=== PATIENT | female | born 1990 | race Caucasian/White ===

== ENCOUNTER → 2016-08-19 | Emergency (ER) | payer MEDICAID ==
[~2016-08-19] VITALS: Ht 154.9 cm; Wt 95.5 kg
[~2016-08-19] MED LIST: ADDERALL XR20 MG PO; ADDERALL10 MG PO; ADDERALL20 MG PO; AMOXICILLIN 50500 MG; ANTIDEPRESANT; BACTRIM DS 8001 TAB PO; CEPHALEXIN500 M1 PO; DEPO PROVER150 MG/ML IM; DOXYCYCLINE100 M2 PO; LEVAQUIN 5500 MG/TA1 PO; LEXAPRO 10MG10 MG PO; LORTAB 5/500 501 TAB PO; MACROBID100 M1 PO; MOTRIN 800800 MG/TAB PO; NO HOME MEDICATIONS; NORCO 325 MG-7.1 TAB PO; PRENATAL1 TA1 PO; PRENATAL1 TA3 PO; PROMETHAZINE12.5 M5 PO; SPRINTEC 35 MCG1 TAB PO; ZITHROMAX 250M250 MG PO; ZOFRAN 4MG T4 MG/TAB PO; ZOFRAN ODT4 MG PO
[2016-08-19 16:55] VITALS: TEMP 98.4
[2016-08-19 18:12] LABS: BASO # 0.1 (0.0-0.2); BASO % 0.6 % (0.0-2.0); EOS # 0.2 (0.0-0.7); EOS % 2.5 % (0-4.0); GRAN % 47.9 % (42.2-75.2); HEMATOCRIT 37.9 % (37.0-47.0); HEMOGLOBIN 12.6 g/dl (12.5-16.0); LYMPH # 3.2 (1.2-3.4); LYMPH % 37.9 % (20.0-51.0); MEAN CELL VOLUME 92 fl (80.0-100.0); MEAN CORPUSCULAR HEMOGLOBIN 30 pg (27.0-31.0); MEAN CORPUSCULAR HGB CONC 33 g/dl (33.0-37.0); MEAN PLATELET VOLUME 9.8 fl (7.4-10.4); MONO # 0.9 (0.1-0.6); MONO % 10.9 % (1.7-9.3); PLATELET COUNT 250 K/mm3 (130-400); RED BLOOD COUNT 4.14 M/mm3 (4.10-5.30); REDCELL DISTRIBUTION WIDTH-CV 13.6 % (11.5-14.5); WHITE BLOOD COUNT 8.3 K/mm3 (4.8-10.8)
[2016-08-19 18:31] LABS: AMPHETAMINE URINE NEGATIVE; BARBITURATES URINE NEGATIVE; BENZODIAZEPINES URINE NEGATIVE; BUPRENORPHINE URINE NEGATIVE; METHADONE URINE NEGATIVE; OPIATES URINE NEGATIVE; OXYCODONE URINE NEGATIVE; PHENCYCLIDINE URINE NEGATIVE; PROPOXYPHENE URINE NEGATIVE; THC CANNABINOIDS URINE NEGATIVE
[2016-08-19 18:32] LABS: ADJUSTED CALCIUM 9.3 mg/dL (8.4-10.2); ALANINE AMINOTRANSFERASE 33 U/L (9-52); ALBUMIN 3.5 gm/dL (3.5-5.0); ALKALINE PHOSPHATASE 49 U/L (50-136); ANION GAP 10 mmol/L (7-16); BILIRUBIN,TOTAL 0.4 mg/dL (0.0-1.0); BLOOD UREA NITROGEN 21 mg/dL (7-17); CALCIUM 8.9 mg/dL (8.4-10.2); CARBON DIOXIDE 26 mmol/L (22-30); CHLORIDE 103 mmol/L (98-107); CREATININE, serum 0.84 mg/dL (0.52-1.25); GLUCOSE 87 mg/dL (74-106); POTASSIUM 3.9 mmol/L (3.4-5.0); SODIUM 139 mmol/L (137-145); TOTAL PROTEIN 5.9 gm/dL (6.4-8.2)
[2016-08-19 18:33] LABS: ACETAMINOPHEN < 10 ug/mL (10-30); SALICYLATE < 1.0 mg/dL
[2016-08-19 21:05] VITALS: BP 118/70; PULSE 78
== END ==
LOC: COL.ER 16:43
PROVIDERS: Emergency Medicine
DX: F33.0 Major depressive disorder, recurrent, mild (principal); R45.851 Suicidal ideations

== ENCOUNTER 2018-11-19 22:04 | Emergency (ER) | payer MEDICAID ==
[~2018-11-19] VITALS: Ht 152.4 cm; Wt 90.9 kg
[2018-11-19 22:22] VITALS: BP 116/73; PULSE 84; TEMP 98.8
== END 2018-11-19 22:35 | disposition left against medical advice (07) ==
LOC: COL.ER 22:04
DX: M54.5 Low back pain (principal)

== ENCOUNTER 2019-02-16 14:36 | Outpatient (RCR) | payer OTHER | END 2019-05-04 | disposition home or self-care (01) | LOC: WSOH | DX: S76.811A Strain of other specified muscles, fascia and tendons at thigh level, right thigh, initial encounter (principal); E03.9 Hypothyroidism, unspecified; E55.9 Vitamin D deficiency, unspecified; F39 Unspecified mood [affective] disorder; F90.9 Attention-deficit hyperactivity disorder, unspecified type; F41.8 Other specified anxiety disorders; Z90.89 Acquired absence of other organs; Z98.890 Other specified postprocedural states; Y99.0 Civilian activity done for income or pay ==

== ENCOUNTER 2020-01-17 18:17 | Emergency (ER) | payer BC, MEDICAID ==
[~2020-01-17] VITALS: Ht 154.9 cm; Wt 95.5 kg
[2020-01-17 19:13] LABS: BASO # 0.1 (0.0-0.2); BASO % 0.7 % (0.0-2.0); EOS # 0.1 (0.0-0.7); EOS % 1.6 % (0-4.0); GRAN # 4.2 (1.4-6.5); GRAN % 52.8 % (42.2-75.2); HEMATOCRIT 35.5 % (37.0-47.0); HEMOGLOBIN 11.2 g/dl (12.5-16.0); LYMPH # 2.8 (1.2-3.4); LYMPH % 35.4 % (20.0-51.0); MEAN CELL VOLUME 83 fl (80.0-100.0); MEAN CORPUSCULAR HEMOGLOBIN 26 pg (27.0-31.0); MEAN CORPUSCULAR HGB CONC 32 g/dl (33.0-37.0); MEAN PLATELET VOLUME 10.3 fl (7.4-10.4); MONO # 0.7 (0.1-0.6); MONO % 9.1 % (1.7-9.3); PLATELET COUNT 305 K/mm3 (130-400); REDCELL DISTRIBUTION WIDTH-CV 15.8 % (11.5-14.5)
[2020-01-17 19:28] LABS: ALANINE AMINOTRANSFERASE 16 U/L (4-34); ALKALINE PHOSPHATASE 52 U/L (50-136); ANION GAP 10 mmol/L (7-16); AST,SGOT 30 U/L (15-37); BILIRUBIN,TOTAL 0.2 mg/dL (0.0-1.0); BLOOD UREA NITROGEN 11 mg/dL (7-17); CALCIUM 8.9 mg/dL (8.4-10.2); CARBON DIOXIDE 19 mmol/L (22-30); CHLORIDE 111 mmol/L (98-107); CREATININE, serum 0.95 (0.52-1.25); GLUCOSE 108 mg/dL (74-106); POTASSIUM 3.4 mmol/L (3.4-5.0); SODIUM 140 mmol/L (137-145)
[2020-01-17 19:29] LABS: C-REACTIVE PROTEIN < 0.5 mg/dL (0.0-0.9)
[2020-01-17 19:49] LABS: COLLECTION METHOD CLEAN CATCH
[2020-01-17 20:07] LABS: MUCOUS Present /lpf; SQUAMOUS EPITHELIAL 0-2 /hpf; URINE BACTERIA Rare /hpf; URINE RBC 0-2 /hpf
[2020-01-17 20:17] LABS: PH 5 (5-8); URINE APPEARANCE Hazy; URINE BILIRUBIN Negative (NEGATIVE); URINE BLOOD 2+ (NEGATIVE); URINE COLOR Yellow; URINE GLUCOSE Negative (NEGATIVE); URINE KETONE Negative (NEGATIVE); URINE LEUKOCYTE ESTERASE Trace (NEGATIVE); URINE NITRATE Negative (NEGATIVE); URINE PROTEIN(semi-quant) Negative (NEGATIVE); URINE UROBILINOGEN Negative (NEGATIVE)
[2020-01-17] MEDS ORDERED: MACROBID 1100 MG/CAP PO (20:29)
[2020-01-17 20:43] VITALS: BP 118/64; PULSE 78; TEMP 98.6
== END 2020-01-17 20:46 | disposition home or self-care (01) ==
LOC: COL.ER 18:17
PROVIDERS: Emergency Medicine
DX: N39.0 Urinary tract infection, site not specified (principal); N94.6 Dysmenorrhea, unspecified; F90.9 Attention-deficit hyperactivity disorder, unspecified type; E03.9 Hypothyroidism, unspecified; F43.10 Post-traumatic stress disorder, unspecified; F41.9 Anxiety disorder, unspecified; F32.9 Major depressive disorder, single episode, unspecified; Z90.89 Acquired absence of other organs
CPT/HCPCS: J1885; J2060; J7030

== ENCOUNTER 2020-06-10 17:15 | Emergency (ER) | payer BC, MEDICAID ==
[~2020-06-10] VITALS: Ht 154.9 cm; Wt 97.7 kg
[~2020-06-10 17:15] MED LIST changes: +MACROBID 1100 MG/CAP PO
[2020-06-10 17:29] VITALS: TEMP 97.3
[2020-06-10 18:53] LABS: BASO % 0.5 % (0.0-2.0); EOS # 0.1 (0.0-0.7); EOS % 1.8 % (0-4.0); GRAN % 53.2 % (42.2-75.2); HEMOGLOBIN 10.1 g/dl (12.5-16.0); LYMPH # 1.9 (1.2-3.4); MEAN CELL VOLUME 84 fl (80.0-100.0); MEAN CORPUSCULAR HEMOGLOBIN 25 pg (27.0-31.0); MEAN CORPUSCULAR HGB CONC 30 g/dl (33.0-37.0); MEAN PLATELET VOLUME 9.9 fl (7.4-10.4); MONO # 0.6 (0.1-0.6); MONO % 10.3 % (1.7-9.3); PLATELET COUNT 286 K/mm3 (130-400); RED BLOOD COUNT 3.98 M/mm3 (4.10-5.30); REDCELL DISTRIBUTION WIDTH-CV 15.3 % (11.5-14.5)
[2020-06-10 18:54] LABS: HEMATOCRIT 33.5 % (37.0-47.0)
[2020-06-10 19:08] LABS: ALANINE AMINOTRANSFERASE 18 U/L (4-34); ALBUMIN 3.8 gm/dL (3.5-5.0); ALKALINE PHOSPHATASE 48 U/L (50-136); ANION GAP 7 mmol/L (7-16); AST,SGOT 29 U/L (15-37); BILIRUBIN,TOTAL 0.2 mg/dL (0.0-1.0); BLOOD UREA NITROGEN 11 mg/dL (7-17); CALCIUM 8.4 mg/dL (8.4-10.2); CARBON DIOXIDE 29 mmol/L (22-30); CHLORIDE 103 mmol/L (98-107); CREATININE, serum 0.78 (0.52-1.25); GLUCOSE 101 mg/dL (74-106); POTASSIUM 3.9 mmol/L (3.4-5.0); SODIUM 138 mmol/L (137-145); TOTAL PROTEIN 6.7 gm/dL (6.4-8.2)
[2020-06-10 19:26] LABS: TROPONIN-I < 0.012 ng/mL (0.000-0.035)
[2020-06-10] MEDS ORDERED: PROVENTIL0.09 MG/A1 IH (21:41)
[2020-06-10 22:05] VITALS: BP 105/72; PULSE 87
== END 2020-06-10 22:05 | disposition home or self-care (01) ==
LOC: COL.ER 17:15
PROVIDERS: Physician Assistant
DX: U07.1 COVID-19 (principal); Z82.49 Family history of ischemic heart disease and other diseases of the circulatory system
CPT/HCPCS: Q9967

== ENCOUNTER 2020-08-09 09:50 | Emergency (ER) | payer BC, MEDICAID ==
[~2020-08-09] VITALS: Ht 154.9 cm; Wt 95.5 kg
[~2020-08-09 09:50] MED LIST changes: +PROVENTIL0.09 MG/A1 IH
[2020-08-09 10:01] VITALS: BP 114/79; TEMP 98.8
[2020-08-09] MEDS ORDERED: AMBIEN 10MG10 MG PO (10:07)
[2020-08-09] MEDS ORDERED: SYNTHROID0.05 MG/TA PO (10:08)
[2020-08-09] MEDS ORDERED: ADDERALL XR30 MG PO (10:08)
[2020-08-09] MEDS ORDERED: LEXAPRO20 MG (10:08)
[2020-08-09] MEDS ORDERED: LATUDA20 MG PO (10:09)
[2020-08-09 10:33] LABS: STREP SCREEN NEGATIVE
[2020-08-09] MEDS ORDERED: MAGIC MOUTH PO (10:40)
[2020-08-09 10:47] VITALS: PULSE 97
== END 2020-08-09 10:48 | disposition home or self-care (01) ==
LOC: COL.ER 09:50
PROVIDERS: Nurse Practitioner Primary Care
DX: J02.9 Acute pharyngitis, unspecified (principal); J45.909 Unspecified asthma, uncomplicated; F90.9 Attention-deficit hyperactivity disorder, unspecified type; F41.9 Anxiety disorder, unspecified

== ENCOUNTER 2023-02-22 09:59 | Emergency (ER) | payer BC, MEDICAID ==
[~2023-02-22] VITALS: Ht 154.9 cm; Wt 127.3 kg
[~2023-02-22 09:59] MED LIST changes: +ADDERALL XR30 MG PO; +AMBIEN 10MG10 MG PO; +LATUDA20 MG PO; +LEXAPRO20 MG; +MAGIC MOUTH PO; +SYNTHROID0.05 MG/TA PO
[2023-02-22 10:08] VITALS: TEMP 98.6
[2023-02-22 11:55] VITALS: BP 113/75; PULSE 70
== END 2023-02-22 11:56 | disposition home or self-care (01) ==
LOC: COL.ER 09:59
DX: S93.601A Unspecified sprain of right foot, initial encounter (principal); X58.XXXA Exposure to other specified factors, initial encounter

== ENCOUNTER 2023-07-03 12:51 | Emergency (ER) | payer BC, MEDICAID ==
[~2023-07-03] VITALS: Ht 157.5 cm; Wt 122.7 kg
[2023-07-03 13:11] VITALS: TEMP 98.6
[2023-07-03] MEDS ORDERED: Morphine 4 MG/ML VIAL IV PRN (16:30)
[2023-07-03] MEDS ORDERED: Ondansetron 4 MG/2 ML VIAL IV PRN (16:30)
[2023-07-03] MEDS ORDERED: NS 1,000 ML IV ONE ×2 (16:30→18:15)
[2023-07-03 18:20] LABS: BASO % 0.5 % (0.0-2.0); EOS # 0.1 K/mm3 (0.0-0.7); EOS % 1.6 % (0.0-4.0); GRAN # 4.9 K/mm3 (1.4-6.5); GRAN % 56.2 % (42.2-75.2); HEMATOCRIT 40.9 % (37.0-47.0); HEMOGLOBIN 12.9 g/dl (12.5-16.0); LYMPH # 2.9 K/mm3 (1.2-3.4); LYMPH % 33.1 % (20.0-51.0); MEAN CELL VOLUME 86 fl (80.0-100.0); MEAN CORPUSCULAR HEMOGLOBIN 27 pg (27-31); MEAN CORPUSCULAR HGB CONC 32 g/dl (33.0-37.0); MEAN PLATELET VOLUME 9.9 fl (7.4-10.4); MONO # 0.7 K/mm3 (0.1-0.6); MONO % 8.3 % (1.7-9.3); PLATELET COUNT 324 K/mm3 (130-400); RED BLOOD COUNT 4.76 M/mm3 (4.10-5.30); REDCELL DISTRIBUTION WIDTH-CV 14.6 % (11.5-14.5)
[2023-07-03 18:39] LABS: COLLECTION METHOD CLEAN CATCH
[2023-07-03 18:41] LABS: ALBUMIN 3.5 gm/dL (3.5-5.0); BILIRUBIN,TOTAL 0.4 mg/dL (0.2-1.2); CALCIUM 9.3 mg/dL (8.4-10.2); CREATININE, serum 0.89 mg/dL (0.57-1.11); POTASSIUM 3.8 mmol/L (3.5-4.5)
[2023-07-03 18:46] LABS: PH 6.5 (5.0-8.5); URINE APPEARANCE CLEAR (CLEAR/HAZY); URINE BLOOD NEGATIVE (NEGATIVE); URINE COLOR YELLOW (YELLOW); URINE GLUCOSE NEGATIVE (NEGATIVE); URINE KETONE NEGATIVE (NEGATIVE); URINE NITRATE NEGATIVE (NEGATIVE); URINE PROTEIN(semi-quant) NEGATIVE (NEGATIVE)
[2023-07-03] MEDS ORDERED: ZOFRAN ODT4 MG PO (21:08)
[2023-07-03] MEDS ORDERED: NORCO 325 MG-51 TAB PO (21:08)
[2023-07-03 21:32] VITALS: BP 106/67; PULSE 86
== END 2023-07-03 21:32 | disposition home or self-care (01) ==
LOC: COL.ER 12:51
PROVIDERS: Personal Emergency Response Attendant
DX: R10.9 Unspecified abdominal pain (principal)
CPT/HCPCS: J2270; J2405; J7030

== ENCOUNTER 2023-12-20 15:12 | Emergency (ER) | payer MEDICAID ==
[~2023-12-20] VITALS: Ht 157.5 cm; Wt 107.7 kg
[~2023-12-20 15:12] MED LIST changes: +NORCO 325 MG-51 TAB PO
[2023-12-20 15:18] VITALS: TEMP 98
[2023-12-20] MEDS ORDERED: LR 1,000 ML IV ONE (15:45)
[2023-12-20 16:08] LABS: BASO # 0.1 K/mm3 (0.0-0.2); BASO % 0.6 % (0.0-2.0); EOS # 0.1 K/mm3 (0.0-0.7); EOS % 0.7 % (0.0-4.0); GRAN # 5.4 K/mm3 (1.4-6.5); GRAN % 61.9 % (42.2-75.2); HEMATOCRIT 40.1 % (37.0-47.0); HEMOGLOBIN 12.7 g/dl (12.5-16.0); LYMPH # 2.6 K/mm3 (1.2-3.4); LYMPH % 29.8 % (20.0-51.0); MEAN CELL VOLUME 89 fl (80.0-100.0); MEAN CORPUSCULAR HEMOGLOBIN 28 pg (27-31); MEAN CORPUSCULAR HGB CONC 32 g/dl (33.0-37.0); MEAN PLATELET VOLUME 10.9 fl (7.4-10.4); MONO # 0.6 K/mm3 (0.1-0.6); MONO % 6.9 % (1.7-9.3); PLATELET COUNT 289 K/mm3 (130-400); REDCELL DISTRIBUTION WIDTH-CV 15.9 % (11.5-14.5)
[2023-12-20 16:26] LABS: ALBUMIN 3.9 g/dL (3.5-5.0); CREATININE, serum 1.07 mg/dL (0.57-1.11); MAGNESIUM 1.9 mg/dL (1.6-2.6); POTASSIUM 3.5 mEq/L (3.5-4.5)
[2023-12-20 16:42] LABS: BILIRUBIN,TOTAL 0.5 mg/dL (0.2-1.2)
[2023-12-20 16:46] LABS: TSH w REFLEX 0.36 uIU/mL (0.350-4.940)
[2023-12-20 17:28] LABS: COLLECTION METHOD CLEAN CATCH
[2023-12-20 17:48] LABS: URINE APPEARANCE CLOUDY (CLEAR/HAZY); URINE COLOR YELLOW (YELLOW); URINE GLUCOSE Negative (NEGATIVE); URINE KETONE 3+ (NEGATIVE); URINE NITRATE Negative (NEGATIVE); URINE PROTEIN(semi-quant) Negative (NEGATIVE)
[2023-12-20 17:49] LABS: URINE BLOOD TRACE-INTACT (NEGATIVE)
[2023-12-20 18:08] LABS: URINE RBC 0-2 /hpf (0-2); URINE WBC >50 /hpf (0-2)
[2023-12-20 18:09] LABS: BUDDING YEAST PRESENT (NOT PRESENT); MUCOUS PRESENT (NOT PRESENT); SQUAMOUS EPITHELIAL 20-50 /hpf (0-10); URINE BACTERIA MANY /hpf (NONE SEEN)
[2023-12-20] MEDS ORDERED: Cephalexin 500 MG CAP PO ONE (18:45)
[2023-12-20] MEDS ORDERED: CEPHALEXIN500 M1 PO (18:46)
[2023-12-20 18:53] VITALS: BP 104/56; PULSE 76
== END 2023-12-20 19:01 | disposition home or self-care (01) ==
LOC: COL.ER 15:12
PROVIDERS: Emergency Medicine
DX: N39.0 Urinary tract infection, site not specified (principal)
CPT/HCPCS: J7120